=== PATIENT | male | born 1970 | race Caucasian/White ===

== ENCOUNTER 2024-09-08 22:09 | Emergency (ER) | payer MEDICAID, SELFPAY ==
--- NOTE | 2024-09-08 22:00 | RT.EKG_ITS ---
APPROVED REPORT Exam: Resting ECG Reason for Exam: chest pain Patient Location: E HR:71 bpm ECG Measurements Heart Rate 71 AXIS WY 134 P 42 QRSd 84 QRS 23 QT 383 T 15 QTc 417 Conclusion Sinus rhythm...normal P axis, V-rate 60- 99 Probable left atrial enlargement...P >50mS, <-0.10mV V1
[2024-09-08 22:08] VITALS: PULSE 70; RESP 16; TEMP 36.9; O2SAT 97
[2024-09-08 22:11] VITALS: BP 161/95
[2024-09-08 22:19] VITALS: RESP 16
--- NOTE | 2024-09-08 22:30 | DI.RAD_ITS ---
Exam(s) XR PORTABLE CHEST AP EXAM: XR PORTABLE CHEST AP CLINICAL HISTORY: Chest pain TECHNIQUE: 2D digital imaging was performed of the chest. Two images were obtained. AP views were obtained. COMPARISON: No exams were available for comparison FINDINGS: MEDIASTINUM: Normal. HEART: Normal. PULMONARY VASCULATURE: Normal. LUNGS: Clear. PLEURAL SPACE: No pleural effusion or pneumothorax. BONE:Within normal limits for the patient's age. OTHER FINDINGS:Normal. IMPRESSION: No acute pulmonary findings. DATA REPOSITORY: RADIATION DOSE DELIVERED:
[2024-09-08 22:50] LABS: Abs Immature Grans 0.02 10^3/uL (0.0-0.06); Absolute Basophil Count 0.08 10^3/uL (0.0-0.2); Absolute Lymphocyte Count 2.25 10^3/uL (1.2-3.4); Absolute Monocyte Count 0.68 10^3/uL (0.1-0.8); Absolute Neutrophil Count 4.37 10^3/uL (1.2-6.7); Basophils % 1.1 %; Eosinophils % 1.3 %; HCT 44.4 % (40.0-50.0); HGB 15.6 g/dL (13.5-17.5); Immature Grans % 0.3 %; MCH 33.3 pg (27.0-33.0); MCHC 35.1 % (32.0-36.0); MCV 95 fL (80-95); Monocytes % 9.1 %; Neutrophils % 58.2 %; Platelet Count 240 10^3/uL (130-400); RBC 4.68 10^6/uL (4.36-5.78); RDW 11.8 % (11.8-14.1)
[2024-09-08] MEDS: Pantoprazole 40 MG VIAL IVP (22:50)
[2024-09-08 22:59] LABS: INR 1.1 (0.9-1.1); Prothrombin Time 10.8 sec (9.1-11.1)
[2024-09-08 23:03] LABS: ETHANOL BLOOD 115.5 mg/dL (<10)
[2024-09-08 23:07] LABS: ALT 52 U/L (16-63); AST 30 U/L (15-37); Albumin 3.9 g/dL (3.4-5.0); Alkaline Phosphatase 92 U/L (46-116); Anion Gap 9.7 mmol/L (3-11); BUN 14 mg/dL (7-18); Bilirubin, Total 0.58 mg/dL (0.2-1.0); CO2 27.3 mmol/L (21.0-32.0); CREATININE 1.2 mg/dL (0.70-1.30); Calcium 8.6 mg/dL (8.5-10.1); Chloride 107 mmol/L (98-107); Estimated GFR 72.76 (mL/min/1.73m2); Glucose 78 mg/dL (74-106); Lipase 63 U/L (<78); Magnesium 2.1 mg/dL (1.8-2.4); Potassium 4.3 mmol/L (3.5-5.1); Sodium 144 mmol/L (136-145); Total Protein 7.6 g/dL (6.4-8.2); Troponin I 10 ng/L (<or=76)
--- NOTE | 2024-09-08 23:55 | DI.VRAD_ITS ---
PROCEDURE INFORMATION: Exam: XR Chest Exam date and time: 09/08/2024 11:35 PM Age: 54 years old Clinical indication: Other: Chest pain TECHNIQUE: Imaging protocol: Radiologic exam of the chest. Views: 1 view. COMPARISON: No relevant prior studies available. FINDINGS: Lungs: Unremarkable. No consolidation. Pleural spaces: Unremarkable. No pleural effusion. No pneumothorax. Heart/Mediastinum: Unremarkable. No cardiomegaly. Bones/joints: Unremarkable. IMPRESSION: No acute findings. Dictated and Authenticated by: Ailyn Lambert MD. Orderin Khai Butler MD
[2024-09-09 00:01] LABS: Troponin I 5 ng/L (<or=76)
--- NOTE | 2024-09-09 00:57 | ED.GENADUL_ITS ---
Discharge Plan Disposition Patient Disposition: Home Condition: Good Discharge Details Chief Complaint: Chest Pain Clinical Impression: Chest pain due to gastrointestinal reflux disease, without esophagitis Primary Care Provider: Unknown,Unknown ED Provider: Luke Ridley Home Meds and New Rx's Prescriptions: No Action atorvastatin 10 mg tablet 10 mg PO DAILY metoprolol tartrate 25 mg tablet 25 mg PO DAILY lisinopril 5 mg tablet 5 mg PO DAILY Discharge Instructions Instructions: Chest Pain, Adult ED Additional Instructions: Follow-up with your regular medical provider to restart your medications when you are ready. When you are ready to stop drinking alcohol, seek help in the local community through a support organization or through your regular primary care doctor. You can always return to the ER for any new concerns or sudden changes in your health which you feel require emergency medical attention. HPI General Date/Time Provider Initiated Documentation: 09/08/24 22:10 . HPI Narrative: The patient is a 54-year-old male, with a past medical history significant for atrial fibrillation, hypertension, and alcohol misuse disorder with active alcoholism, who presents to the emergency department this morning from local police lockup where he was detoxing for alcohol intoxication. The patient tells me that he was sober for 5 of the last 9 days, before having a relapse and binging quite heavily for 4 days. He tells me that he called the police who came and put him in lockup so he would stop drinking alcohol. He tells me that he has never experienced any significant alcohol withdrawal symptoms that he knows of. While he was in police custody he developed chest pain and a brought him to the emergency room for evaluation. He reports the chest pain as squeezing substernal chest discomfort which began at around 9:30 PM this evening. The patient tells me that he is never had any known pancreatitis or alcoholic gastritis or esophagitis that he knows of. Related Data Home Medications ?Medication ?Instructions ?Recorded ?Confirmed atorvastatin 10 mg tablet 10 mg PO DAILY 09/08/24 09/08/24 lisinopril 5 mg tablet 5 mg PO DAILY 09/08/24 09/08/24 metoprolol tartrate 25 mg tablet 25 mg PO DAILY 09/08/24 09/08/24 Allergies Allergy/AdvReac Type Severity Reaction Status Date / Time No Known Allergies Allergy Unverified 09/08/24 22:14 General Stated Complaint: Chest Pain FAUSTINO: 3 Exam Const General: cooperative and no acute distress HENMT Head: normal to inspection, normocephalic and atraumatic Ears: external ears normal General nose exam: external nose normal Face and sinus: normal facial exam Mouth: oral mucosae normal Teeth and gingiva: dentition normal Eyes General: appearance normal, both eyes and all related structures Pupils: PERRL EOM: EOM intact bilaterally Neck Neck: full ROM and supple Resp Effort & Inspection: normal respiratory effort Auscultation: clear to auscultation bilaterally Cardio Rate: regular rate Rhythm: regular rhythm GI Inspection: normal to inspection Palpation: soft Auscultation: normal bowel sounds Back/Spine/Pelvis Back: No no CVA tenderness and No back tenderness Skin General skin exam: no rashes or lesions noted Lesions: no lesions Neuro General: patient oriented x3, moves all extremities, normal light touch, pain and propioception, no focal motor deficits and CN's II-XI intact bilaterally Extrem General: full ROM, no clubbing, no cyanosis and no edema Psych Appearance: grossly normal and well kempt Mental Status: mental status grossly normal Speech and Movement: speech and movement normal Mood: congruent mood Affect: normal affect Attitude: cooperative Thought Content: normal Insight: insight good Course Vital Signs Vital signs: Vital Signs Temperature 36.9 C 09/08/24 22:08 Pulse 70 09/08/24 22:08 Respiratory Rate 16 09/08/24 22:08 Pulse Oximetry 97 09/08/24 22:08 Temperature 36.9 C 09/08/24 22:08 Temperature Source Skin 09/08/24 22:08 Pulse 70 09/08/24 22:08 Respiratory Rate 16 09/08/24 22:19 Respiratory Effort Normal 09/08/24 22:19 Respiratory Depth Normal 09/08/24 22:19 Respiratory Pattern Normal 09/08/24 22:19 Blood Pressure 161/95 H 09/08/24 22:11 Pulse Oximetry 97 09/08/24 22:08 Oxygen Delivery Method Room Air 09/08/24 22:08 Oxygen Flow Rate 0 09/08/24 22:08 Lab/Test Results Lab/Test Results: Laboratory Tests Range/Units 09/08/24 09/08/24 22:22 23:35 WBC (4.4-10.8) 10^3/uL 7.50 RBC (4.36-5.78) 10^6/uL 4.68 Hgb (13.5-17.5) g/dL 15.6 Hct (40.0-50.0) % 44.4 MCV (80-95) fL 95 MCH (27.0-33.0) pg 33.3 H MCHC (32.0-36.0) % 35.1 RDW (11.8-14.1) % 11.8 Plt Count (130-400) 10^3/uL 240 MPV (8.0-11.0) fL 10.0 Immature Gran % % 0.3 Neutrophils % % 58.2 Lymphocytes % % 30.0 Monocytes % % 9.1 Eosinophils % % 1.3 Basophils % % 1.1 Nucleated RBC % (0.0-0.3) % 0.0 Absolute Neutrophils (1.2-6.7) 10^3/uL 4.37 Absolute Lymphocytes (1.2-3.4) 10^3/uL 2.25 Absolute Monocytes (0.1-0.8) 10^3/uL 0.68 Absolute Eosinophils (0.0-0.7) 10^3/uL 0.10 Absolute Basophils (0.0-0.2) 10^3/uL 0.08 PT (9.1-11.1) sec 10.8 INR (0.9-1.1) 1.1 Sodium (136-145) mmol/L 144 Potassium (3.5-5.1) mmol/L 4.3 Chloride (98-107) mmol/L 107 Carbon Dioxide (21.0-32.0) mmol/L 27.3 Anion Gap (3-11) mmol/L 9.7 BUN (7-18) mg/dL 14 Creatinine (0.70-1.30) mg/dL 1.2 Est GFR (CKD-EPI 2020) (mL/min/1.73m2) 72.76 Glucose (74-106) mg/dL 78 Calcium (8.5-10.1) mg/dL 8.6 Magnesium (1.8-2.4) mg/dL 2.1 Total Bilirubin (0.2-1.0) mg/dL 0.58 AST (15-37) U/L 30 ALT (16-63) U/L 52 Alkaline Phosphatase (46-116) U/L 92 Troponin I (<or=76) ng/L 10 5 Total Protein (6.4-8.2) g/dL 7.6 Albumin (3.4-5.0) g/dL 3.9 Lipase (<78) U/L 63 Ethyl Alcohol (<10) mg/dL 115.5 H Medical Decision Making The patient was seen and examined. He is in no distress and has normal vital signs here in the emergency room. He has a normal sinus rhythm ventricular sponsor rate of 71 bpm. There are some nonspecific ST depressions in III and aVF which do not appear to represent pattern injury ischemia as there is a normal appearing repolarization in lead II. The remainder of the EKG does not appear to have any significant complex morphology abnormalities that would be consistent with cardiac pathology. The patient is not currently in atrial fibrillation, and that most likely was a previous consequence of alcohol misuse disorder. The patient is likely and it only paroxysmally with binge drinking. The patient's laboratory findings were essentially normal here in the emergency room. He had no significant elevation of his liver function tests or lipase. His electrolytes were all intact including potassium and magnesium. The patient has a mildly elevated alcohol level at 115 mg/dL but is clinically sober and has been through the duration of his time with us in the emergency room. The patient was given medications that were clinically more appropriate for alcoholic gastritis and esophagitis and reports feeling better. He initially told me that he wanted to be evaluated for detox placement, but then asked the nurse if he could leave at around 12:30 AM. I explained to him that he would require a third troponin which would be drawn after 1 AM for clearance of acute cardiac disease. The patient agreed to wait for the third troponin prior to rediscussing disposition. The patient had negative serial troponins here in the ER. Despite previously telling me that he was seeking placement in medical detox, the patient now tells me that he would like to leave. The patient will be discharged to his on reconnaissance I encouraged him to follow-up for consideration of alcohol cessation when he is ready. Quality:SDOH Health Related Social Needs: No Data to Display PFSH All Active Problems (Updated 09/09/24 @ 03:08 by Luke Ridley MD) Chest pain due to gastrointestinal reflux disease, without esophagitis (Acute) Social History Smoking risk assessment performed?: No Drug use: Occasionally PAWSS Have you Been Recently Intoxicated or Drunk Within the Last 30 days?: Yes Have you Ever Experienced Previous Episodes of Alcohol Withdrawal?: Yes Have you ever Experienced Withdrawal Seizures?: No Have you ever Experienced Delirium Tremens(DT)s?: No Have you ever undergone Alcohol Rehabilitation Treatment (i.e, inpt ot outpatient treatment programs)?: Yes Have you ever Experienced Blackouts?: Yes Have you ever Combined Alcohol with other Downers within the last 90 days?: No Have you ever Combined Alcohol with any other Substance of Abuse during the last 90 days?: No Positive Blood Alcohol level on Presentation? [PCS.BAL]: Yes Evidence of Increased Autonomic Activity (i.e. HR>120, tremor, sweating, agitation, nausea)?: No Result: 5
[2024-09-09 02:25] LABS: Troponin I < 4 ng/L (<or=76)
== END 2024-09-09 03:34 | disposition home or self-care (01) ==
PROVIDERS: Emergency Provider Emergency Medicine Emergency Medical Services
DX: R07.9 Chest pain, unspecified (principal); K21.9 Gastro-esophageal reflux disease without esophagitis; I48.91 Unspecified atrial fibrillation; I10 Essential (primary) hypertension; F10.20 Alcohol dependence, uncomplicated; Y90.5 Blood alcohol level of 100-119 mg/100 ml; Z82.49 Family history of ischemic heart disease and other diseases of the circulatory system
CPT/HCPCS: 80053; 83690; 93005; 96374; 99284; 71045; 80320; 83735; 84484; 85025; 85610; 93010; J2470